=== PATIENT | female | born 1960 | race Caucasian/White ===

== ENCOUNTER 2017-04-03 09:57 | Inpatient (IN) | payer OTHER ==
[2017-04-03 10:23] VITALS: BMI 19.7
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
[2017-04-03] MEDS ORDERED: hydrOXYzine PAMOATE 25 MG CAPSULE (FP) PO PRN (10:59)
[2017-04-03] MEDS ORDERED: chlordiazePOXIDE HCL 25 MG CAPSULE PO PRN (10:59)
[2017-04-03] MEDS ORDERED: ACETAMINOPHEN 325 MG TABLET (FP) PO PRN (10:59)
[2017-04-03] MEDS ORDERED: chlordiazePOXIDE HCL 25 MG CAPSULE PO ONE (10:59)
[2017-04-03] MEDS ORDERED: P-EPHED 60MG/TRIPROLIDI 2.5MG TABLET PO PRN (10:59)
[2017-04-03] MEDS ORDERED: diphenhydrAMINE HCL 50 MG CAPSULE PO PRN (10:59)
[2017-04-03] MEDS ORDERED: guaiFENesin/D-METHORPHAN HB 10 ML UNIT-DOSE CUPS PO PRN (10:59)
[2017-04-03] MEDS ORDERED: MAGNESIUM HYDROX 2400MG/30ML ORAL SUSPENSION 30 ML CUP PO PRN (10:59)
[2017-04-03] MEDS ORDERED: MAGNESIUM CITRATE 300 ML BOTTLE PO PRN (10:59)
[2017-04-03] MEDS ORDERED: IBUPROFEN 400 MG TABLET (FP) PO PRN (10:59)
[2017-04-03] MEDS ORDERED: MENTHOL/PHENOL 1 EACH UD MM PRN (10:59)
[2017-04-03] MEDS ORDERED: LOPERAMIDE HCL 2 MG CAPSULE PO PRN (10:59)
[2017-04-03] MEDS: NICOTINE 21 MG/24 HOURS TOPICAL PATCH TD SCH (11:50)
--- NOTE | 2017-04-03 13:29 | EKG ---
Test Reason : Blood Pressure : / mmHG Vent. Rate : 090 BPM Atrial Rate : 090 BPM P-R Int : 156 ms QRS Dur : 094 ms QT Int : 386 ms P-R-T Axes : 075 077 061 degrees QTc Int : 472 ms NORMAL SINUS RHYTHM NONSPECIFIC T WAVE ABNORMALITY PROLONGED QT ABNORMAL ECG NO PREVIOUS ECGS AVAILABLE Confirmed by ROBLES PATEL MD ([id number]) on 04/03/2017 1:29:05 PM Referred By: Confirmed By:ROBLES PATEL MD
[2017-04-03 15:56] LABS: URINE APPEARANCE SLCLOUDY; URINE BILIRUBIN NEGATIVE (NEGATIVE); URINE BLOOD NEGATIVE (NEGATIVE); URINE COLOR YELLOW; URINE GLUCOSE (UA) NEGATIVE (NEGATIVE); URINE KETONE NEGATIVE (NEGATIVE); URINE NITRITE POSITIVE (NEGATIVE); URINE PROTEIN NEGATIVE (NEGATIVE); URINE UROBILINOGEN NEGATIVE mg/dL (0.2-1.0)
[2017-04-03 15:58] LABS: URINE LEUK ESTERASE 2+ (NEGATIVE)
[2017-04-03 16:03] LABS: URINE BACTERIA RARE /hpf (NONE SEEN); URINE MUCUS RARE; URINE RBC 1 /hpf (0-3); URINE WBC 34 /hpf (3-5); YEAST FEW
[2017-04-03] MEDS: chlordiazePOXIDE HCL 25 MG CAPSULE PO SCH ×2 (16:58→22:20)
[2017-04-03] MEDS ORDERED: BACITRACIN 15 GM TUBE TOPICAL OINTMENT TP SCH (22:00)
[2017-04-03] MEDS: THIAMINE HCL 100 MG TABLET (FP) PO SCH (22:19)
[2017-04-04] MEDS: chlordiazePOXIDE HCL 25 MG CAPSULE PO SCH ×4 (05:49→22:30)
--- NOTE | 2017-04-04 09:09 | CONSULT ---
[facility] Psychiatric Consult - Data Date of interview: 04/04/17 Admission source: [facility] Identifying data: This is b56 years old male with psychiatric hospiotalization history, history of Bipolar dsiorder, intoxicTED WITH: aLCOHOL And Nicotine Substance Abuse History: - Smoking Cessation. Smoking history: Current every day smoker. Have you smoked in the past 12 months: Yes. Aproximately how many cigarettes per day: 5. Cigars Per Day: 0. Hx Chewing Tobacco Use: No. Initiated information on smoking cessation: Yes. 'Breaking Loose' booklet given : 04/03/17. - Substance & Tx. History. Hx Alcohol Use: Yes. Hx Substance Use : No. Substance Use Type: Alcohol. Hx Substance Use Treatment: Yes ([facility] to 03/27/17 not completed). - Substances Abused. Alcohol. Route: Oral. Frequency: Daily. Amount used: 3 pints of vodka. Age of first use: 19. Date of Last Use: 04/02/17 Medical History: S/P Craniotomy, Ecchimosis, Syncope history, Asthma, Seizure history. Weight loss historry Psychiatric History: Patient reports to carry Bipolar disorder, reports most recent psychiatrioc admission on [facility], reports taking prior to admission: Depakote 500mg poqd. Remeron 30mg po qhs. Gabapentin 600mg po tid. Vistaril 100mg po tid Physical/Sexual Abuse/Trauma History: Denies Additional Comment: Depakote 500mg poqd. Remeron 30mg po qhs. Gabapentin 600mg po tid. Vistaril 100mg po tid Mental Status Exam - Mental Status Exam Alert and Oriented to: Person Cognitive Function: Fair Patient Appearance: Unkempt Mood: Sad Affect: Mood Congruent Patient Behavior: Cooperative Speech Pattern: Delayed Voice Loudness: Mildly Soft/Quiet Thought Process: Circumstantial Thought Disorder: Being Controlled Hallucinations: Denies Suicidal Ideation: Denies Homicidal Ideation: Denies Insight/Judgement: Fair Sleep: Difficulty falling asleep Appetite: Weight loss Muscle strength/Tone: Moderate Hypotonicity Gait/Station: Shuffling Additional Comments: Depakote 500mg poqd. Remeron 30mg po qhs. Gabapentin 600mg po tid. Vistaril 100mg po tid Psychiatric Findings - Problem List ([place] 1, 2,3) (1) Alcohol dependence Current Visit: No Status: Active (2) Bipolar disorder Current Visit: No Status: Active (3) Alcohol dependence with uncomplicated withdrawal Current Visit: No Status: Acute (4) Bipolar I disorder Current Visit: No Status: Acute (5) Nicotine dependence Current Visit: No Status: Acute (6) Bipolar disorder, unspecified Current Visit: No Status: Chronic Qualifiers: Active/Remission status: in remission of unspecified degree Qualified Code(s): F31.70 - Bipolar disorder, currently in remission, most recent episode unspecified (7) Weight decreased Current Visit: No Status: Chronic - Initial Treatment Plan Initial Treatment Plan: Depakote 500mg poqd. Remeron 30mg po qhs. Gabapentin 600mg po tid. Vistaril 100mg po tid
--- NOTE | 2017-04-04 09:09 | PN ---
S CIWA - CIWA Score Nausea/Vomitin-No Nausea/No Vomiting Muscle Tremors: 3 Anxiety: 3 Agitation: 4-Moderately Restless Paroxysmal Sweats: 3 Orientation: 0-Oriented Tacttile Disturbances: 0-None Auditory Disturbances: 0-None Visual Disturbances: 0-None Headache: 2-Mild CIWA-Ar Total Score: 15 BHS Progress Note (SOAP) Subjective: back pain sweats shakes interrupted sleep anxious leg pain Objective: 04/04/17 09:06 Vital Signs Temperature 97.0 F 04/04/17 10:00 Pulse Rate 83 04/04/17 10:00 Respiratory Rate 16 04/04/17 10:00 Blood Pressure 112/68 04/04/17 10:00 O2 Sat by Pulse Oximetry (%) Laboratory Tests 04/03/17 13:52 Urine Color Yellow Urine Appearance Slcloudy Urine pH 6.0 D Ur Specific [place] 1.015 Urine Protein Negative Urine Glucose (UA) Negative Urine Ketones Negative Urine Blood Negative Urine Nitrite Positive Urine Bilirubin Negative Urine Urobilinogen Negative Ur Leukocyte Esterase 2+ H Urine RBC 1 Urine WBC 34 Ur Epithelial Cells Few Urine Bacteria Rare Urine Mucus Rare Urine Yeast Few labs pending awake/alert no acute distress repeat u/a Assessment: 04/04/17 09:13 withdrawal sx Plan: continue detox increase fluids lidocaine patch motrin/tylenol prn f/u pending labs
[2017-04-04 10:01] LABS: MCH 30.3 pg (25.7-33.7); MCHC 33.1 g/dl (32.0-36.0); MEAN CELL VOLUME 91.5 fl (80-96); MEAN PLT VOLUME 6.4 fl (7.5-11.1); PLATELET COUNT 182 K/MM3 (134-434); RDW 13.3 % (11.6-15.6)
[2017-04-04 10:21] LABS: ANION GAP 8 (8-16); CO2 27 mmol/L (21-32); GLUCOSE,RANDOM 109 mg/dL (74-106); SGOT/AST 39 U/L (15-37); SGPT/ALT 54 U/L (12-78)
[2017-04-04 10:23] LABS: ALK PHOS 113 U/L (45-117); BILIRUBIN,TOTAL 0.4 mg/dL (0.2-1.0); CALCIUM 8.6 mg/dL (8.5-10.1); CREATININE 0.8 mg/dL (0.55-1.02)
[2017-04-04] MEDS: BACITRACIN 0.9 GM PACKET TP SCH ×2 (10:37→22:30)
[2017-04-04] MEDS: PRENATAL VITAMINS W/ FOLIC ACID TABLET (FP) PO SCH (10:37)
[2017-04-04] MEDS: DIVALPROEX SODIUM 500 MG TABLET E.C. PO SCH (10:37)
[2017-04-04] MEDS: LIDOCAINE 5% TOPICAL PATCH TP SCH (10:38)
[2017-04-04] MEDS: NICOTINE 21 MG/24 HOURS TOPICAL PATCH TD SCH (10:39)
[2017-04-04] MEDS ORDERED: hydrOXYzine PAMOATE 25 MG CAPSULE (FP) PO SCH (14:00)
[2017-04-04] MEDS: hydrOXYzine PAMOATE 50 MG CAPSULE (FP) PO SCH ×2 (14:45→22:31)
[2017-04-04] MEDS: GABAPENTIN 300 MG CAPSULE (FP) PO SCH ×2 (14:45→22:31)
[2017-04-04] MEDS: MAG HYDROX/AL HYDROX/SIMETH 30 ML UNIT-DOSE CUP PO PRN (19:57)
[2017-04-04] MEDS: LIDOCAINE PATCH REMOVAL MC SCH (22:30)
[2017-04-04] MEDS: MIRTAZAPINE 30 MG TABLET (FP) PO SCH (22:31)
[2017-04-04] MEDS: THIAMINE HCL 100 MG TABLET (FP) PO SCH (22:31)
[2017-04-05] MEDS: GABAPENTIN 300 MG CAPSULE (FP) PO SCH ×3 (06:00→22:39)
[2017-04-05] MEDS: hydrOXYzine PAMOATE 50 MG CAPSULE (FP) PO SCH ×3 (06:00→22:39)
[2017-04-05] MEDS: chlordiazePOXIDE HCL 25 MG CAPSULE PO SCH ×2 (06:00→10:30)
[2017-04-05] MEDS: MAG HYDROX/AL HYDROX/SIMETH 30 ML UNIT-DOSE CUP PO PRN (06:28)
[2017-04-05] MEDS: BACITRACIN 0.9 GM PACKET TP SCH ×2 (10:29→22:38)
[2017-04-05] MEDS: DIVALPROEX SODIUM 500 MG TABLET E.C. PO SCH (10:29)
--- NOTE | 2017-04-05 10:29 | PN ---
[facility] CIWA - CIWA Score Nausea/Vomitin-No Nausea/No Vomiting Muscle Tremors: 4-Moderate,w/Arms Extend Anxiety: 3 Agitation: 3 Paroxysmal Sweats: 3 Orientation: 0-Oriented Tacttile Disturbances: 0-None Auditory Disturbances: 0-None Visual Disturbances: 0-None Headache: 0-None Present CIWA-Ar Total Score: 13 S Progress Note (SOAP) Subjective: I have a UTI sweats shakes interrupted sleep anxiety Objective: 04/05/17 10:27 Vital Signs Temperature 96.3 F L 04/05/17 06:30 Pulse Rate 84 04/05/17 06:30 Respiratory Rate 18 04/05/17 06:30 Blood Pressure 129/83 04/05/17 06:30 O2 Sat by Pulse Oximetry (%) Laboratory Tests 04/03/17 04/04/17 04/04/17 13:52 07:15 07:15 WBC 4.0 RBC 3.96 Hgb 12.0 Hct 36.2 MCV 91.5 MCH 30.3 MCHC 33.1 RDW 13.3 Plt Count 182 MPV 6.4 L Sodium 139 Potassium 3.9 Chloride 104 Carbon Dioxide 27 Anion Gap 8 BUN 20 H D Creatinine 0.8 Creat Clearance w eGFR > 60 Random Glucose 109 H Calcium 8.6 Total Bilirubin 0.4 D AST 39 H D ALT 54 D Alkaline Phosphatase 113 D Total Protein 6.0 L Albumin 3.0 L Urine Color Yellow Urine Appearance Slcloudy Urine pH 6.0 D Ur Specific [place] 1.015 Urine Protein Negative Urine Glucose (UA) Negative Urine Ketones Negative Urine Blood Negative Urine Nitrite Positive Urine Bilirubin Negative Urine Urobilinogen Negative Ur Leukocyte Esterase 2+ H Urine RBC 1 Urine WBC 34 Ur Epithelial Cells Few Urine Bacteria Rare Urine Mucus Rare Urine Yeast Few RPR Titer 04/04/17 07:15 WBC RBC Hgb Hct MCV MCH MCHC RDW Plt Count MPV Sodium Potassium Chloride Carbon Dioxide Anion Gap BUN Creatinine Creat Clearance w eGFR Random Glucose Calcium Total Bilirubin AST ALT Alkaline Phosphatase Total Protein Albumin Urine Color Urine Appearance Urine pH Ur Specific [place] Urine Protein Urine Glucose (UA) Urine Ketones Urine Blood Urine Nitrite Urine Bilirubin Urine Urobilinogen Ur Leukocyte Esterase Urine RBC Urine WBC Ur Epithelial Cells Urine Bacteria Urine Mucus Urine Yeast RPR Titer Nonreactive awake/alert ambulating no acute distress Assessment: 04/05/17 10:28 withdrawal sx Plan: continue detox increase fluids bactrim ds bid x 3 days
[2017-04-05] MEDS: LIDOCAINE 5% TOPICAL PATCH TP SCH (10:30)
[2017-04-05] MEDS: NICOTINE 21 MG/24 HOURS TOPICAL PATCH TD SCH (10:30)
[2017-04-05] MEDS: SULFAMETHOXAZOLE/TRIMETHOPRIM 800MG/160MG D.S. TABLET PO SCH ×2 (10:30→22:39)
[2017-04-05] MEDS: PRENATAL VITAMINS W/ FOLIC ACID TABLET (FP) PO SCH (10:31)
[2017-04-05] MEDS: chlordiazePOXIDE 5 MG CAPSULE PO SCH ×2 (19:26→22:39)
[2017-04-05] MEDS: MIRTAZAPINE 30 MG TABLET (FP) PO SCH (22:39)
[2017-04-05] MEDS: THIAMINE HCL 100 MG TABLET (FP) PO SCH (22:39)
[2017-04-05] MEDS: LIDOCAINE PATCH REMOVAL MC SCH (22:53)
[2017-04-06] MEDS: GABAPENTIN 300 MG CAPSULE (FP) PO SCH ×3 (05:53→22:40)
[2017-04-06] MEDS: chlordiazePOXIDE 5 MG CAPSULE PO SCH ×2 (05:53→10:37)
[2017-04-06] MEDS: hydrOXYzine PAMOATE 50 MG CAPSULE (FP) PO SCH ×3 (05:53→22:40)
[2017-04-06] MEDS: BACITRACIN 0.9 GM PACKET TP SCH ×2 (10:37→22:40)
[2017-04-06] MEDS: PRENATAL VITAMINS W/ FOLIC ACID TABLET (FP) PO SCH (10:37)
[2017-04-06] MEDS: SULFAMETHOXAZOLE/TRIMETHOPRIM 800MG/160MG D.S. TABLET PO SCH ×2 (10:37→22:40)
[2017-04-06] MEDS: DIVALPROEX SODIUM 500 MG TABLET E.C. PO SCH (10:37)
[2017-04-06] MEDS: NICOTINE 21 MG/24 HOURS TOPICAL PATCH TD SCH (10:39)
[2017-04-06] MEDS: LIDOCAINE 5% TOPICAL PATCH TP SCH (10:40)
--- NOTE | 2017-04-06 11:21 | PN ---
BHS Progress Note (SOAP) Subjective: feeling better little shakes Objective: 04/06/17 11:19 Vital Signs Temperature 97.9 F L 04/06/17 10:00 Pulse Rate 98 04/06/17 10:00 Respiratory Rate 18 04/06/17 10:00 Blood Pressure 115/69 04/06/17 10:00 O2 Sat by Pulse Oximetry (%) awake/alert ambulating no acute distress Assessment: 04/06/17 11:21 withdrawal sx Plan: continue detox increase fluids continue ABX as ordered d/c in am
[2017-04-06] MEDS: chlordiazePOXIDE HCL 10 MG CAPSULE PO SCH ×2 (17:21→22:40)
[2017-04-06] MEDS: THIAMINE HCL 100 MG TABLET (FP) PO SCH (22:40)
[2017-04-06] MEDS: MIRTAZAPINE 30 MG TABLET (FP) PO SCH (22:40)
[2017-04-06] MEDS: LIDOCAINE PATCH REMOVAL MC SCH (22:41)
[2017-04-07] MEDS: hydrOXYzine PAMOATE 50 MG CAPSULE (FP) PO SCH (05:37)
[2017-04-07] MEDS: chlordiazePOXIDE HCL 10 MG CAPSULE PO SCH ×2 (05:37→10:50)
[2017-04-07] MEDS: GABAPENTIN 300 MG CAPSULE (FP) PO SCH (05:37)
--- NOTE | 2017-04-07 08:10 | PN ---
S Progress Note (SOAP) Subjective: ALERT,NO COMPLAINT Objective: 04/07/17 08:07 Vital Signs Temperature 96.9 F L 04/07/17 06:51 Pulse Rate 84 04/07/17 06:51 Respiratory Rate 18 04/07/17 06:51 Blood Pressure 101/58 04/07/17 06:51 O2 Sat by Pulse Oximetry (%) Assessment: 04/07/17 08:07 DETOX COMPLETED,NO WITHDRAWAL SYMPTOM Plan: DISCHARGE TODAY,FOLLOW UP WITH [facility]
--- NOTE | 2017-04-07 08:15 | DS ---
[facility] Detox Discharge Summary Admission Date: 04/03/17 Discharge Date: 04/07/17 - History Present History: Alcohol Dependence Additional Comments: FOLLOW UP WITH [facility] Pertinent Past History: SEIZURE SYNCOPE ASTHMA NEUROPATHY CRISTI DECREASED S/P SKINN GRAFT ECCHYMOSIS - Physical Exam Results Vital Signs: Vital Signs Temperature 96.9 F L 04/07/17 06:51 Pulse Rate 84 04/07/17 06:51 Respiratory Rate 18 04/07/17 06:51 Blood Pressure 101/58 04/07/17 06:51 O2 Sat by Pulse Oximetry (%) Pertinent Admission Physical Exam Findings: WITHDRAWAL SYMPTOM - Treatment Hospital Course: Detox Protocol Followed, Detoxed Safely, Responded well, Discharged Condition Good, Rehab Referral Accepted Patient has Accepted a Rehab Referral to: [facility] - Medication Discharge Medications: Ambulatory Orders Hydroxyzine Pamoate [Vistaril -] 100 mg PO TID 07/07/13 Fluticasone Propionate [Flovent Hfa] 13 gm IH BID 11/17/15 Albuterol Sulfate Inhaler - [Ventolin HFA Inhaler -] 2 inh PO Q4H PRN #1 canister 11/21/15 Budesonide/Formeterol Fumarate [SYMBICORT 160/4.5mcg -] 1 puff IH BID #1 canister 11/21/15 Gabapentin [Neurontin] 600 mg PO TID #120 capsule 11/21/15 Thiamine HCl [Vitamin B1 -] 100 mg PO HS #30 tablet 11/21/15 Divalproex [Depakote -] 500 mg PO DAILY #30 tablet.ec 12/30/15 Mirtazapine [Remeron -] 30 mg PO HS #30 tablet 12/30/15 Divalproex [Depakote -] 250 mg PO BID #60 tablet.ec 04/04/17 Gabapentin [Neurontin -] 600 mg PO TID #90 cap 04/04/17 Hydroxyzine Pamoate [Vistaril -] 100 mg PO TID #90 cap 04/04/17 Mirtazapine [Remeron -] 30 mg PO HS #30 tablet 04/04/17 - Diagnosis (1) Syncope Current Visit: No Status: Active (2) s/p craniotomy left Current Visit: No Status: Active (3) Alcohol dependence with uncomplicated withdrawal Current Visit: No Status: Acute (4) Bipolar I disorder Current Visit: No Status: Acute (5) Nicotine dependence Current Visit: No Status: Acute (6) Asthma Current Visit: No Status: Chronic (7) Neuropathy Current Visit: No Status: Chronic (8) Seizure Current Visit: No Status: Chronic (9) Weight decreased Current Visit: No Status: Chronic (10) Ecchymosis Current Visit: Yes Status: Acute (11) History of skin graft Current Visit: Yes Status: Acute (12) Bipolar disorder Current Visit: No Status: Active - AMA Did Patient Leave Against Medical Advice: No
[2017-04-07] MEDS ORDERED: chlordiazePOXIDE 5 MG CAPSULE ONE (09:04)
[2017-04-07 10:35] VITALS: BP 107/69; PULSE 91; TEMP 97.9
[2017-04-07] MEDS: LIDOCAINE 5% TOPICAL PATCH TP SCH (10:47)
[2017-04-07] MEDS: BACITRACIN 0.9 GM PACKET TP SCH (10:47)
[2017-04-07] MEDS: DIVALPROEX SODIUM 500 MG TABLET E.C. PO SCH (10:47)
[2017-04-07] MEDS: PRENATAL VITAMINS W/ FOLIC ACID TABLET (FP) PO SCH (10:47)
[2017-04-07] MEDS: SULFAMETHOXAZOLE/TRIMETHOPRIM 800MG/160MG D.S. TABLET PO SCH (10:47)
[2017-04-07] MEDS: NICOTINE 21 MG/24 HOURS TOPICAL PATCH TD SCH (10:49)
== END 2017-04-07 11:40 | disposition other institution (70) | DRG 775 ==
LOC: YASAS 09:57 → Y6N 10:30
PROVIDERS: ADMIT Internal Medicine; ATTEND Internal Medicine
PROC: HZ2ZZZZ Detoxification Services for Substance Abuse Treatment (ICD-10-PCS; principal; 2017-04-07)
DX: F10.230 Alcohol dependence with withdrawal, uncomplicated (principal); F17.210 Nicotine dependence, cigarettes, uncomplicated; F31.89 Other bipolar disorder; J45.909 Unspecified asthma, uncomplicated; G62.9 Polyneuropathy, unspecified; B18.2 Chronic viral hepatitis C; Z86.79 Personal history of other diseases of the circulatory system; Z86.69 Personal history of other diseases of the nervous system and sense organs; Z59.0 Homelessness
CPT/HCPCS: 36415; 80053; 80164; 81003; 81015; 85027; 86593; 93005; 93010

== ENCOUNTER 2017-04-07 11:54 | Inpatient (IN) | payer OTHER ==
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
[2017-04-07] MEDS ORDERED: ACETAMINOPHEN 325 MG TABLET (FP) PO PRN (15:22)
[2017-04-07] MEDS ORDERED: guaiFENesin/D-METHORPHAN HB 10 ML UNIT-DOSE CUPS PO PRN (15:22)
[2017-04-07] MEDS ORDERED: MENTHOL/PHENOL 1 EACH UD MM PRN (15:22)
[2017-04-07] MEDS ORDERED: MAGNESIUM HYDROX 2400MG/30ML ORAL SUSPENSION 30 ML CUP PO PRN (15:22)
[2017-04-07] MEDS ORDERED: IBUPROFEN 400 MG TABLET (FP) PO PRN (15:22)
[2017-04-07] MEDS ORDERED: diphenhydrAMINE HCL 50 MG CAPSULE PO PRN (15:22)
[2017-04-07] MEDS ORDERED: MAGNESIUM CITRATE 300 ML BOTTLE PO PRN (15:22)
[2017-04-07] MEDS ORDERED: P-EPHED 60MG/TRIPROLIDI 2.5MG TABLET PO PRN (15:22)
[2017-04-07] MEDS ORDERED: hydrOXYzine PAMOATE 50 MG CAPSULE (FP) PO PRN (15:22)
[2017-04-07] MEDS ORDERED: LOPERAMIDE HCL 2 MG CAPSULE PO PRN (15:22)
[2017-04-07] MEDS ORDERED: ALBUTEROL SO4 6.7 GM HFA INHALER IH PRN (15:25)
--- NOTE | 2017-04-07 15:35 | HP ---
[facility] Rehab Assess/Revision - Admission History Admitted to Rehab from: [facility] Date of Admission to Rehab: 04/07/17 - Findings Detox History & Physical reviewed: Yes Concur with findings: Yes Comments/Additional Findings: for rehab as protocol
[2017-04-07] MEDS: MIRTAZAPINE 30 MG TABLET (FP) PO SCH (21:21)
[2017-04-07] MEDS: SULFAMETHOXAZOLE/TRIMETHOPRIM 800MG/160MG D.S. TABLET PO SCH (21:21)
[2017-04-07] MEDS: THIAMINE HCL 100 MG TABLET (FP) PO SCH (21:21)
[2017-04-07] MEDS: GABAPENTIN 400 MG CAPSULE (FP) PO SCH (21:21)
[2017-04-07] MEDS: hydrOXYzine PAMOATE 50 MG CAPSULE (FP) PO SCH (21:22)
[2017-04-07] MEDS: BUDESONIDE/FORMETEROL FUMARATE 160/4.5 mcg INHALER IH SCH (21:22)
[2017-04-07] MEDS: LIDOCAINE PATCH REMOVAL MC SCH (21:22)
[2017-04-08] MEDS: hydrOXYzine PAMOATE 50 MG CAPSULE (FP) PO SCH ×3 (06:29→21:24)
[2017-04-08] MEDS: GABAPENTIN 400 MG CAPSULE (FP) PO SCH ×3 (06:29→21:24)
[2017-04-08] MEDS: NICOTINE 21 MG/24 HOURS TOPICAL PATCH TD SCH (10:16)
[2017-04-08] MEDS: LIDOCAINE 5% TOPICAL PATCH TP SCH (10:16)
[2017-04-08] MEDS: DIVALPROEX SODIUM 500 MG TABLET E.C. PO SCH (10:17)
[2017-04-08] MEDS: SULFAMETHOXAZOLE/TRIMETHOPRIM 800MG/160MG D.S. TABLET PO SCH ×2 (10:17→21:24)
[2017-04-08] MEDS: PRENATAL VITAMINS W/ FOLIC ACID TABLET (FP) PO SCH (10:17)
[2017-04-08] MEDS: BUDESONIDE/FORMETEROL FUMARATE 160/4.5 mcg INHALER IH SCH ×2 (10:17→21:23)
--- NOTE | 2017-04-08 14:59 | PN ---
BHS Progress Note (SOAP) Subjective: left foot redness ulcer Objective: 04/08/17 14:57 Vital Signs Temperature 97.8 F 04/08/17 07:09 Pulse Rate 85 04/08/17 07:09 Respiratory Rate 16 04/08/17 07:09 Blood Pressure 103/70 04/08/17 07:09 O2 Sat by Pulse Oximetry (%) pt aox3 ambulating left medial foot ulcer with surrounding redness impression small ulcer with cellulitis plan augmentin 875mg bid bacitracin oint with daily dressing .
[2017-04-08] MEDS: AMOX TR/POT CLAV 875MG/125MG TABLETS (FP) PO SCH (18:15)
[2017-04-08] MEDS ORDERED: PT OWN MED DRAWER 7, Y5N ONE (19:53)
[2017-04-08 20:58] LABS: HIV 1 & 2 AB NEGATIVE; HIV 1 AGp24 NEGATIVE
[2017-04-08] MEDS: THIAMINE HCL 100 MG TABLET (FP) PO SCH (21:24)
[2017-04-08] MEDS: MIRTAZAPINE 30 MG TABLET (FP) PO SCH (21:32)
[2017-04-08] MEDS: LIDOCAINE PATCH REMOVAL MC SCH (22:17)
[2017-04-09] MEDS: GABAPENTIN 400 MG CAPSULE (FP) PO SCH ×3 (06:28→21:21)
[2017-04-09] MEDS: hydrOXYzine PAMOATE 50 MG CAPSULE (FP) PO SCH ×3 (06:28→21:22)
[2017-04-09] MEDS: AMOX TR/POT CLAV 875MG/125MG TABLETS (FP) PO SCH ×2 (07:13→17:21)
[2017-04-09] MEDS: BACITRACIN 0.9 GM PACKET TP SCH (09:50)
[2017-04-09] MEDS: NICOTINE 21 MG/24 HOURS TOPICAL PATCH TD SCH (09:50)
[2017-04-09] MEDS: SULFAMETHOXAZOLE/TRIMETHOPRIM 800MG/160MG D.S. TABLET PO SCH ×2 (09:51→21:22)
[2017-04-09] MEDS: PRENATAL VITAMINS W/ FOLIC ACID TABLET (FP) PO SCH (09:51)
[2017-04-09] MEDS: DIVALPROEX SODIUM 500 MG TABLET E.C. PO SCH (09:51)
[2017-04-09] MEDS: LIDOCAINE 5% TOPICAL PATCH TP SCH (09:51)
[2017-04-09] MEDS ORDERED: PT OWN MED DRAWER 7, Y5N ONE ×2 (09:52→20:35)
[2017-04-09] MEDS: BUDESONIDE/FORMETEROL FUMARATE 160/4.5 mcg INHALER IH SCH ×2 (09:53→21:21)
[2017-04-09] MEDS: MIRTAZAPINE 30 MG TABLET (FP) PO SCH (21:22)
[2017-04-09] MEDS: THIAMINE HCL 100 MG TABLET (FP) PO SCH (21:22)
[2017-04-09] MEDS: LIDOCAINE PATCH REMOVAL MC SCH (22:00)
[2017-04-10] MEDS: GABAPENTIN 400 MG CAPSULE (FP) PO SCH ×3 (06:37→21:47)
[2017-04-10] MEDS: hydrOXYzine PAMOATE 50 MG CAPSULE (FP) PO SCH ×3 (06:37→21:47)
[2017-04-10] MEDS: AMOX TR/POT CLAV 875MG/125MG TABLETS (FP) PO SCH ×2 (07:43→17:25)
[2017-04-10] MEDS ORDERED: PT OWN MED DRAWER 7, Y5N ONE (08:55)
[2017-04-10] MEDS: BUDESONIDE/FORMETEROL FUMARATE 160/4.5 mcg INHALER IH SCH ×2 (09:55→21:47)
[2017-04-10] MEDS: BACITRACIN 0.9 GM PACKET TP SCH (09:55)
[2017-04-10] MEDS: LIDOCAINE 5% TOPICAL PATCH TP SCH (09:56)
[2017-04-10] MEDS: NICOTINE 21 MG/24 HOURS TOPICAL PATCH TD SCH (09:56)
[2017-04-10] MEDS: DIVALPROEX SODIUM 500 MG TABLET E.C. PO SCH (09:57)
[2017-04-10] MEDS: SULFAMETHOXAZOLE/TRIMETHOPRIM 800MG/160MG D.S. TABLET PO SCH ×2 (09:57→21:47)
[2017-04-10] MEDS: PRENATAL VITAMINS W/ FOLIC ACID TABLET (FP) PO SCH (09:57)
[2017-04-10] MEDS: MAG HYDROX/AL HYDROX/SIMETH 30 ML UNIT-DOSE CUP PO PRN (21:46)
[2017-04-10] MEDS: MIRTAZAPINE 30 MG TABLET (FP) PO SCH (21:48)
[2017-04-10] MEDS: THIAMINE HCL 100 MG TABLET (FP) PO SCH (21:48)
[2017-04-10] MEDS: LIDOCAINE PATCH REMOVAL MC SCH (21:49)
[2017-04-11] MEDS: hydrOXYzine PAMOATE 50 MG CAPSULE (FP) PO SCH ×3 (06:25→21:33)
[2017-04-11] MEDS: GABAPENTIN 400 MG CAPSULE (FP) PO SCH ×3 (06:25→21:33)
[2017-04-11] MEDS: AMOX TR/POT CLAV 875MG/125MG TABLETS (FP) PO SCH ×2 (07:48→17:30)
[2017-04-11] MEDS: MAG HYDROX/AL HYDROX/SIMETH 30 ML UNIT-DOSE CUP PO PRN ×2 (08:50→21:32)
[2017-04-11] MEDS ORDERED: PT OWN MED DRAWER 7, Y5N ONE (10:19)
[2017-04-11] MEDS: PRENATAL VITAMINS W/ FOLIC ACID TABLET (FP) PO SCH (10:20)
[2017-04-11] MEDS: BACITRACIN 0.9 GM PACKET TP SCH (10:20)
[2017-04-11] MEDS: SULFAMETHOXAZOLE/TRIMETHOPRIM 800MG/160MG D.S. TABLET PO SCH ×2 (10:20→21:33)
[2017-04-11] MEDS: BUDESONIDE/FORMETEROL FUMARATE 160/4.5 mcg INHALER IH SCH ×2 (10:20→21:33)
[2017-04-11] MEDS: DIVALPROEX SODIUM 500 MG TABLET E.C. PO SCH (10:20)
[2017-04-11] MEDS: NICOTINE 21 MG/24 HOURS TOPICAL PATCH TD SCH (10:21)
[2017-04-11] MEDS: LIDOCAINE 5% TOPICAL PATCH TP SCH (10:21)
--- NOTE | 2017-04-11 13:53 | PN ---
Psychiatric Progress Note Vital Signs: Vital Signs Period Temp Pulse Resp BP Sys/Richardson Pulse Ox Last 24 Hr 97.5 F 90 18-18 111/71 Date of Session: 04/11/17 Chief Complaint:: leg cramps from rEMERON HPI: Patient addressing Alcohol Dependence comorbid with Nicotine Dependence and Bipolar Disorder ROS: Asthma, Hep C, Neuropathy, Alcohol-related seizure Current Medications: Active Medications Generic Name Dose Route Start Last Admin Trade Name Freq PRN Reason Stop Dose Admin Acetaminophen 650 mg 04/07/17 15:22 Tylenol - PO Q4H PRN FEVER OR PAIN Al Hydroxide/Mg Hydroxide 30 ml 04/07/17 15:22 04/11/17 08:50 Mylanta Oral Suspension - PO 30 ml Q6H PRN Administration DYSPEPSIA Albuterol Sulfate 2 puff 04/07/17 15:25 Ventolin Hfa Inhaler - IH Q4H PRN ASTHMA Amoxicillin/Clavulanate Potassium 1 tab 04/08/17 17:30 04/11/17 07:48 Augmentin - 875mg Tablet PO 1 tab BID@0800,1730 DEVYN Administration Bacitracin 0.9 gm 04/09/17 10:00 04/11/17 10:20 Bacitracin - TP 0.9 gm DAILY DEVYN Administration Budesonide/Formoterol Fumarate 1 puff 04/07/17 22:00 04/11/17 10:20 Symbicort 160/4.5mcg - IH 1 inhaler BID DEVYN Administration Diphenhydramine HCl 50 mg 04/07/17 15:22 Benadryl - PO HSMR1 PRN FOR ITCHING Divalproex Sodium 500 mg 04/08/17 10:00 04/11/17 10:20 Depakote - PO 500 mg DAILY DEVYN Administration Eucalyptus/Menthol/Phenol/Sorbitol 1 each 04/07/17 15:22 Cepastat Lozenge - MM Q4H PRN SORE THROAT Gabapentin 400 mg 04/07/17 22:00 04/11/17 13:36 Neurontin - PO 400 mg TID DEVYN Administration Guaifenesin 10 ml 04/07/17 15:22 Robitussin Dm - PO Q6H PRN COUGH Hydroxyzine Pamoate 100 mg 04/07/17 22:00 04/11/17 13:37 Vistaril - PO 100 mg TID DEVYN Administration Hydroxyzine Pamoate 50 mg 04/07/17 15:22 Vistaril - PO Q4H PRN AGITATION Ibuprofen 400 mg 04/07/17 15:22 Motrin - PO Q6H PRN PAIN Lidocaine 1 patch 04/08/17 10:00 04/11/17 10:21 Lidoderm Patch - TP 1 patch DAILY DEVYN Administration Loperamide HCl 4 mg 04/07/17 15:22 Imodium - PO Q6H PRN DIARRHEA Magnesium Hydroxide 30 ml 04/07/17 15:22 Milk Of Magnesia - PO DAILY PRN CONSTIPATION Miscellaneous 1 each 04/07/17 22:00 04/10/17 21:49 Lidoderm Patch Removal MC 1 each DAILY@2200 DEVYN Administration Nicotine 21 mg 04/08/17 10:00 04/11/17 10:21 Nicoderm Patch - TD 21 mg DAILY DEVYN Administration Multivit/Folic Acid/Iron 1 tab 04/08/17 10:00 04/11/17 10:20 Vitamins (Sjr) - PO 1 tab DAILY DEVYN Administration Pseudoephedrine/Triprolidine 1 combo 04/07/17 15:22 Actifed - PO TID PRN NASAL CONGESTION Quetiapine Fumarate 100 mg 04/11/17 22:00 Seroquel - PO HS DEVYN Thiamine HCl 100 mg 04/07/17 22:00 04/10/17 21:48 Vitamin B1 - PO 100 mg HS DEVYN Administration Trimethoprim/Sulfamethoxazole 1 each 04/07/17 22:00 04/11/17 10:20 Bactrim Ds - PO 1 each BID DEVYN Administration Current Side Effect: Yes (Cramps in legs) Lab tests ordered: Yes Provider note:: Patient reports experiencing cramps in her legs due to Remeron. Claims that she had that problem before and her psychiatrist substituted Seroquel 100 mg to Remeron for insomnia. This was verified by calling her Pharmacy:[facility] at . She filled Seroquel script on 03/21. Total face to face time:: 25 Mental Status Exam - Mental Status Exam Alert and Oriented to: Time, Place, Person Cognitive Function: Fair Patient Appearance: Well Groomed Mood: Irritable Affect: Appropriate Patient Behavior: Cooperative Speech Pattern: Clear Voice Loudness: Normal Thought Process: Intact, Goal Oriented Thought Disorder: Not Present Hallucinations: Denies Suicidal Ideation: Denies Homicidal Ideation: Denies Insight/Judgement: Fair Sleep: Poorly Appetite: Good Muscle strength/Tone: Normal Gait/Station: Normal Psychiatric Treatment Plan - Problem List (1) Alcohol dependence Current Visit: No (2) Nicotine dependence Current Visit: No (3) Bipolar disorder Current Visit: No (4) Asthma Current Visit: No (5) Neuropathy Current Visit: No (6) s/p craniotomy left Current Visit: No (7) s/p multiple surgery left Current Visit: No Initial treatment plan: 1) Discontinue Remeron 30 mg po HS. 2) Start Seroquel 100 mg po HS. 3) Monitor progress
[2017-04-11] MEDS: THIAMINE HCL 100 MG TABLET (FP) PO SCH (21:32)
[2017-04-11] MEDS: LIDOCAINE PATCH REMOVAL MC SCH (21:34)
[2017-04-11] MEDS: QUEtiapine FUMARATE 100 MG TABLET (FP) PO SCH (21:35)
[2017-04-12] MEDS: hydrOXYzine PAMOATE 50 MG CAPSULE (FP) PO SCH ×3 (05:58→21:25)
[2017-04-12] MEDS: GABAPENTIN 400 MG CAPSULE (FP) PO SCH ×3 (05:58→21:25)
[2017-04-12] MEDS: AMOX TR/POT CLAV 875MG/125MG TABLETS (FP) PO SCH ×2 (08:02→17:48)
[2017-04-12] MEDS: MAG HYDROX/AL HYDROX/SIMETH 30 ML UNIT-DOSE CUP PO PRN ×2 (08:03→21:29)
[2017-04-12] MEDS: PRENATAL VITAMINS W/ FOLIC ACID TABLET (FP) PO SCH (10:25)
[2017-04-12] MEDS: SULFAMETHOXAZOLE/TRIMETHOPRIM 800MG/160MG D.S. TABLET PO SCH ×2 (10:25→21:25)
[2017-04-12] MEDS: LIDOCAINE 5% TOPICAL PATCH TP SCH (10:25)
[2017-04-12] MEDS: BACITRACIN 0.9 GM PACKET TP SCH (10:25)
[2017-04-12] MEDS: DIVALPROEX SODIUM 500 MG TABLET E.C. PO SCH (10:25)
[2017-04-12] MEDS: BUDESONIDE/FORMETEROL FUMARATE 160/4.5 mcg INHALER IH SCH ×2 (10:26→21:25)
[2017-04-12] MEDS: NICOTINE 21 MG/24 HOURS TOPICAL PATCH TD SCH (10:26)
[2017-04-12] MEDS ORDERED: PT OWN MED DRAWER 7, Y5N ONE (12:55)
[2017-04-12] MEDS: QUEtiapine FUMARATE 100 MG TABLET (FP) PO SCH (21:25)
[2017-04-12] MEDS: LIDOCAINE PATCH REMOVAL MC SCH (21:25)
[2017-04-12] MEDS: THIAMINE HCL 100 MG TABLET (FP) PO SCH (21:25)
[2017-04-13] MEDS: GABAPENTIN 400 MG CAPSULE (FP) PO SCH ×3 (06:14→21:30)
[2017-04-13] MEDS: hydrOXYzine PAMOATE 50 MG CAPSULE (FP) PO SCH ×3 (06:14→21:31)
[2017-04-13] MEDS: AMOX TR/POT CLAV 875MG/125MG TABLETS (FP) PO SCH ×2 (07:33→18:40)
[2017-04-13] MEDS ORDERED: PT OWN MED DRAWER 7, Y5N ONE (09:07)
[2017-04-13] MEDS: PRENATAL VITAMINS W/ FOLIC ACID TABLET (FP) PO SCH (10:04)
[2017-04-13] MEDS: BACITRACIN 0.9 GM PACKET TP SCH (10:04)
[2017-04-13] MEDS: BUDESONIDE/FORMETEROL FUMARATE 160/4.5 mcg INHALER IH SCH ×2 (10:04→21:32)
[2017-04-13] MEDS: SULFAMETHOXAZOLE/TRIMETHOPRIM 800MG/160MG D.S. TABLET PO SCH ×2 (10:04→21:31)
[2017-04-13] MEDS: DIVALPROEX SODIUM 500 MG TABLET E.C. PO SCH (10:04)
[2017-04-13] MEDS: LIDOCAINE 5% TOPICAL PATCH TP SCH (10:05)
[2017-04-13] MEDS: NICOTINE 21 MG/24 HOURS TOPICAL PATCH TD SCH (10:05)
[2017-04-13] MEDS: THIAMINE HCL 100 MG TABLET (FP) PO SCH (21:30)
[2017-04-13] MEDS: QUEtiapine FUMARATE 100 MG TABLET (FP) PO SCH (21:31)
[2017-04-13] MEDS: LIDOCAINE PATCH REMOVAL MC SCH (21:33)
[2017-04-14] MEDS: GABAPENTIN 400 MG CAPSULE (FP) PO SCH ×3 (06:26→21:26)
[2017-04-14] MEDS: hydrOXYzine PAMOATE 50 MG CAPSULE (FP) PO SCH ×3 (06:26→21:26)
[2017-04-14] MEDS: AMOX TR/POT CLAV 875MG/125MG TABLETS (FP) PO SCH ×2 (07:32→17:25)
[2017-04-14] MEDS ORDERED: PT OWN MED DRAWER 7, Y5N ONE (08:43)
[2017-04-14] MEDS: PRENATAL VITAMINS W/ FOLIC ACID TABLET (FP) PO SCH (09:47)
[2017-04-14] MEDS: DIVALPROEX SODIUM 500 MG TABLET E.C. PO SCH (09:47)
[2017-04-14] MEDS: LIDOCAINE 5% TOPICAL PATCH TP SCH (09:47)
[2017-04-14] MEDS: SULFAMETHOXAZOLE/TRIMETHOPRIM 800MG/160MG D.S. TABLET PO SCH ×2 (09:47→21:26)
[2017-04-14] MEDS: BUDESONIDE/FORMETEROL FUMARATE 160/4.5 mcg INHALER IH SCH ×2 (09:48→21:27)
[2017-04-14] MEDS: NICOTINE 21 MG/24 HOURS TOPICAL PATCH TD SCH (09:48)
[2017-04-14] MEDS: BACITRACIN 0.9 GM PACKET TP SCH (09:48)
[2017-04-14] MEDS: THIAMINE HCL 100 MG TABLET (FP) PO SCH (21:26)
[2017-04-14] MEDS: QUEtiapine FUMARATE 100 MG TABLET (FP) PO SCH (21:26)
[2017-04-14] MEDS: LIDOCAINE PATCH REMOVAL MC SCH (21:27)
[2017-04-15] MEDS: hydrOXYzine PAMOATE 50 MG CAPSULE (FP) PO SCH ×3 (06:01→21:24)
[2017-04-15] MEDS: GABAPENTIN 400 MG CAPSULE (FP) PO SCH ×3 (06:01→21:24)
[2017-04-15] MEDS: AMOX TR/POT CLAV 875MG/125MG TABLETS (FP) PO SCH ×2 (07:05→17:25)
[2017-04-15] MEDS ORDERED: PT OWN MED DRAWER 7, Y5N ONE (07:59)
[2017-04-15] MEDS: NICOTINE 21 MG/24 HOURS TOPICAL PATCH TD SCH (10:14)
[2017-04-15] MEDS: SULFAMETHOXAZOLE/TRIMETHOPRIM 800MG/160MG D.S. TABLET PO SCH ×2 (10:15→21:24)
[2017-04-15] MEDS: DIVALPROEX SODIUM 500 MG TABLET E.C. PO SCH (10:15)
[2017-04-15] MEDS: BACITRACIN 0.9 GM PACKET TP SCH (10:15)
[2017-04-15] MEDS: PRENATAL VITAMINS W/ FOLIC ACID TABLET (FP) PO SCH (10:15)
[2017-04-15] MEDS: LIDOCAINE 5% TOPICAL PATCH TP SCH (10:15)
[2017-04-15] MEDS: BUDESONIDE/FORMETEROL FUMARATE 160/4.5 mcg INHALER IH SCH ×2 (10:15→21:25)
[2017-04-15] MEDS: QUEtiapine FUMARATE 100 MG TABLET (FP) PO SCH (21:24)
[2017-04-15] MEDS: THIAMINE HCL 100 MG TABLET (FP) PO SCH (21:25)
[2017-04-15] MEDS: LIDOCAINE PATCH REMOVAL MC SCH (21:25)
[2017-04-16] MEDS: hydrOXYzine PAMOATE 50 MG CAPSULE (FP) PO SCH ×3 (06:33→21:11)
[2017-04-16] MEDS: GABAPENTIN 400 MG CAPSULE (FP) PO SCH ×3 (06:33→21:11)
[2017-04-16] MEDS ORDERED: PT OWN MED DRAWER 7, Y5N ONE ×2 (08:24→12:52)
[2017-04-16] MEDS: BACITRACIN 0.9 GM PACKET TP SCH (10:06)
[2017-04-16] MEDS: DIVALPROEX SODIUM 500 MG TABLET E.C. PO SCH (10:06)
[2017-04-16] MEDS: PRENATAL VITAMINS W/ FOLIC ACID TABLET (FP) PO SCH (10:06)
[2017-04-16] MEDS: LIDOCAINE 5% TOPICAL PATCH TP SCH (10:06)
[2017-04-16] MEDS: SULFAMETHOXAZOLE/TRIMETHOPRIM 800MG/160MG D.S. TABLET PO SCH ×2 (10:07→21:11)
[2017-04-16] MEDS: NICOTINE 21 MG/24 HOURS TOPICAL PATCH TD SCH (10:07)
[2017-04-16] MEDS: BUDESONIDE/FORMETEROL FUMARATE 160/4.5 mcg INHALER IH SCH ×2 (10:07→21:10)
[2017-04-16] MEDS: QUEtiapine FUMARATE 100 MG TABLET (FP) PO SCH (21:11)
[2017-04-16] MEDS: THIAMINE HCL 100 MG TABLET (FP) PO SCH (21:11)
[2017-04-16] MEDS: LIDOCAINE PATCH REMOVAL MC SCH (21:24)
[2017-04-17] MEDS: GABAPENTIN 400 MG CAPSULE (FP) PO SCH ×3 (06:18→21:15)
[2017-04-17] MEDS: hydrOXYzine PAMOATE 50 MG CAPSULE (FP) PO SCH ×3 (06:18→21:15)
[2017-04-17] MEDS: NICOTINE 21 MG/24 HOURS TOPICAL PATCH TD SCH (09:48)
[2017-04-17] MEDS: LIDOCAINE 5% TOPICAL PATCH TP SCH (09:49)
[2017-04-17] MEDS: DIVALPROEX SODIUM 500 MG TABLET E.C. PO SCH (09:50)
[2017-04-17] MEDS: BUDESONIDE/FORMETEROL FUMARATE 160/4.5 mcg INHALER IH SCH ×2 (09:50→21:16)
[2017-04-17] MEDS: BACITRACIN 0.9 GM PACKET TP SCH (09:50)
[2017-04-17] MEDS: SULFAMETHOXAZOLE/TRIMETHOPRIM 800MG/160MG D.S. TABLET PO SCH ×2 (09:50→21:15)
[2017-04-17] MEDS: PRENATAL VITAMINS W/ FOLIC ACID TABLET (FP) PO SCH (09:50)
[2017-04-17] MEDS: MAG HYDROX/AL HYDROX/SIMETH 30 ML UNIT-DOSE CUP PO PRN (16:28)
[2017-04-17] MEDS ORDERED: PT OWN MED DRAWER 7, Y5N ONE (19:13)
[2017-04-17] MEDS: THIAMINE HCL 100 MG TABLET (FP) PO SCH (21:15)
[2017-04-17] MEDS: QUEtiapine FUMARATE 100 MG TABLET (FP) PO SCH (21:15)
[2017-04-17] MEDS: LIDOCAINE PATCH REMOVAL MC SCH (21:16)
[2017-04-18] MEDS: hydrOXYzine PAMOATE 50 MG CAPSULE (FP) PO SCH ×3 (06:12→21:24)
[2017-04-18] MEDS: GABAPENTIN 400 MG CAPSULE (FP) PO SCH ×3 (06:12→21:24)
[2017-04-18] MEDS: NICOTINE 21 MG/24 HOURS TOPICAL PATCH TD SCH (10:08)
[2017-04-18] MEDS: SULFAMETHOXAZOLE/TRIMETHOPRIM 800MG/160MG D.S. TABLET PO SCH (10:10)
[2017-04-18] MEDS: BACITRACIN 0.9 GM PACKET TP SCH (10:10)
[2017-04-18] MEDS: DIVALPROEX SODIUM 500 MG TABLET E.C. PO SCH (10:10)
[2017-04-18] MEDS: PRENATAL VITAMINS W/ FOLIC ACID TABLET (FP) PO SCH (10:10)
[2017-04-18] MEDS: LIDOCAINE 5% TOPICAL PATCH TP SCH (10:11)
[2017-04-18] MEDS ORDERED: PT OWN MED DRAWER 7, Y5N ONE (10:12)
[2017-04-18] MEDS: BUDESONIDE/FORMETEROL FUMARATE 160/4.5 mcg INHALER IH SCH ×2 (10:12→21:25)
[2017-04-18] MEDS: THIAMINE HCL 100 MG TABLET (FP) PO SCH (21:24)
[2017-04-18] MEDS: QUEtiapine FUMARATE 100 MG TABLET (FP) PO SCH (21:24)
[2017-04-18] MEDS: LIDOCAINE PATCH REMOVAL MC SCH (21:25)
[2017-04-19] MEDS: GABAPENTIN 400 MG CAPSULE (FP) PO SCH ×3 (06:23→21:11)
[2017-04-19] MEDS: hydrOXYzine PAMOATE 50 MG CAPSULE (FP) PO SCH ×3 (06:23→21:11)
[2017-04-19] MEDS: BUDESONIDE/FORMETEROL FUMARATE 160/4.5 mcg INHALER IH SCH ×2 (09:59→21:13)
[2017-04-19] MEDS: PRENATAL VITAMINS W/ FOLIC ACID TABLET (FP) PO SCH (09:59)
[2017-04-19] MEDS: DIVALPROEX SODIUM 500 MG TABLET E.C. PO SCH (09:59)
[2017-04-19] MEDS ORDERED: PT OWN MED DRAWER 7, Y5N ONE (09:59)
[2017-04-19] MEDS: BACITRACIN 0.9 GM PACKET TP SCH (09:59)
[2017-04-19] MEDS: LIDOCAINE 5% TOPICAL PATCH TP SCH (10:00)
[2017-04-19] MEDS: NICOTINE 21 MG/24 HOURS TOPICAL PATCH TD SCH (10:00)
[2017-04-19] MEDS: MAG HYDROX/AL HYDROX/SIMETH 30 ML UNIT-DOSE CUP PO PRN (10:12)
[2017-04-19] MEDS: THIAMINE HCL 100 MG TABLET (FP) PO SCH (21:11)
[2017-04-19] MEDS: QUEtiapine FUMARATE 100 MG TABLET (FP) PO SCH (21:11)
[2017-04-19] MEDS: LIDOCAINE PATCH REMOVAL MC SCH (21:14)
[2017-04-20] MEDS: hydrOXYzine PAMOATE 50 MG CAPSULE (FP) PO SCH ×3 (06:33→21:27)
[2017-04-20] MEDS: GABAPENTIN 400 MG CAPSULE (FP) PO SCH ×3 (06:33→21:29)
[2017-04-20] MEDS: BACITRACIN 0.9 GM PACKET TP SCH (09:40)
[2017-04-20] MEDS: NICOTINE 21 MG/24 HOURS TOPICAL PATCH TD SCH (09:40)
[2017-04-20] MEDS: LIDOCAINE 5% TOPICAL PATCH TP SCH (09:40)
[2017-04-20] MEDS: BUDESONIDE/FORMETEROL FUMARATE 160/4.5 mcg INHALER IH SCH ×2 (09:40→21:28)
[2017-04-20] MEDS: PRENATAL VITAMINS W/ FOLIC ACID TABLET (FP) PO SCH (09:41)
[2017-04-20] MEDS: DIVALPROEX SODIUM 500 MG TABLET E.C. PO SCH (09:41)
[2017-04-20] MEDS ORDERED: PT OWN MED DRAWER 7, Y5N ONE ×2 (12:00→12:01)
[2017-04-20] MEDS: THIAMINE HCL 100 MG TABLET (FP) PO SCH (21:27)
[2017-04-20] MEDS: QUEtiapine FUMARATE 100 MG TABLET (FP) PO SCH (21:27)
[2017-04-20] MEDS: LIDOCAINE PATCH REMOVAL MC SCH (21:29)
[2017-04-21] MEDS: GABAPENTIN 400 MG CAPSULE (FP) PO SCH ×3 (06:23→21:17)
[2017-04-21] MEDS: hydrOXYzine PAMOATE 50 MG CAPSULE (FP) PO SCH ×3 (06:24→21:17)
[2017-04-21 06:52] VITALS: TEMP 97
[2017-04-21] MEDS: NICOTINE 21 MG/24 HOURS TOPICAL PATCH TD SCH (09:58)
[2017-04-21] MEDS: LIDOCAINE 5% TOPICAL PATCH TP SCH (09:58)
[2017-04-21] MEDS: DIVALPROEX SODIUM 500 MG TABLET E.C. PO SCH (09:58)
[2017-04-21] MEDS: BACITRACIN 0.9 GM PACKET TP SCH (09:58)
[2017-04-21] MEDS: PRENATAL VITAMINS W/ FOLIC ACID TABLET (FP) PO SCH (09:59)
[2017-04-21] MEDS: BUDESONIDE/FORMETEROL FUMARATE 160/4.5 mcg INHALER IH SCH ×2 (09:59→21:16)
[2017-04-21] MEDS: QUEtiapine FUMARATE 100 MG TABLET (FP) PO SCH (21:17)
[2017-04-21] MEDS: THIAMINE HCL 100 MG TABLET (FP) PO SCH (21:17)
[2017-04-21] MEDS: LIDOCAINE PATCH REMOVAL MC SCH (21:18)
[2017-04-22] MEDS: GABAPENTIN 400 MG CAPSULE (FP) PO SCH (06:20)
[2017-04-22] MEDS: hydrOXYzine PAMOATE 50 MG CAPSULE (FP) PO SCH (06:20)
[2017-04-22 07:05] VITALS: BP 125/70; PULSE 102
[2017-04-22] MEDS: DIVALPROEX SODIUM 500 MG TABLET E.C. PO SCH (09:29)
[2017-04-22] MEDS: PRENATAL VITAMINS W/ FOLIC ACID TABLET (FP) PO SCH (09:29)
[2017-04-22] MEDS: BUDESONIDE/FORMETEROL FUMARATE 160/4.5 mcg INHALER IH SCH (09:29)
[2017-04-22] MEDS: BACITRACIN 0.9 GM PACKET TP SCH (09:29)
[2017-04-22] MEDS: NICOTINE 21 MG/24 HOURS TOPICAL PATCH TD SCH (09:30)
[2017-04-22] MEDS: LIDOCAINE 5% TOPICAL PATCH TP SCH (09:30)
--- NOTE | 2017-04-22 09:38 | PN ---
Psychiatric Progress Note Vital Signs: Vital Signs Period Temp Pulse Resp BP Sys/Richardson Pulse Ox Last 24 Hr 97.0 F 102 16-16 125/70 Date of Session: 04/22/17 Chief Complaint:: Discharge visit HPI: Patient addressed Alcohol dependence comorbid with Bipolar I disorder. ROS: Significant for history of craniotomy. Current Medications: Active Medications Generic Name Dose Route Start Last Admin Trade Name Freq PRN Reason Stop Dose Admin Acetaminophen 650 mg 04/07/17 15:22 Tylenol - PO Q4H PRN FEVER OR PAIN Al Hydroxide/Mg Hydroxide 30 ml 04/07/17 15:22 04/19/17 10:12 Mylanta Oral Suspension - PO 30 ml Q6H PRN Administration DYSPEPSIA Albuterol Sulfate 2 puff 04/07/17 15:25 Ventolin Hfa Inhaler - IH Q4H PRN ASTHMA Bacitracin 0.9 gm 04/09/17 10:00 04/22/17 09:29 Bacitracin - TP 0.9 gm DAILY DEVYN Administration Budesonide/Formoterol Fumarate 1 puff 04/07/17 22:00 04/22/17 09:29 Symbicort 160/4.5mcg - IH 1 inhaler BID DEVYN Administration Diphenhydramine HCl 50 mg 04/07/17 15:22 04/12/17 21:25 Benadryl - PO 50 mg HSMR1 PRN Administration FOR ITCHING Divalproex Sodium 500 mg 04/08/17 10:00 04/22/17 09:29 Depakote - PO 500 mg DAILY DEVYN Administration Eucalyptus/Menthol/Phenol/Sorbitol 1 each 04/07/17 15:22 Cepastat Lozenge - MM Q4H PRN SORE THROAT Gabapentin 400 mg 04/07/17 22:00 04/22/17 06:20 Neurontin - PO 400 mg TID DEVYN Administration Guaifenesin 10 ml 04/07/17 15:22 Robitussin Dm - PO Q6H PRN COUGH Hydroxyzine Pamoate 100 mg 04/07/17 22:00 04/22/17 06:20 Vistaril - PO 100 mg TID DEVYN Administration Hydroxyzine Pamoate 50 mg 04/07/17 15:22 Vistaril - PO Q4H PRN AGITATION Ibuprofen 400 mg 04/07/17 15:22 04/19/17 21:13 Motrin - PO 400 mg Q6H PRN Administration PAIN Lidocaine 1 patch 04/08/17 10:00 04/22/17 09:30 Lidoderm Patch - TP 1 patch DAILY DEVYN Administration Loperamide HCl 4 mg 04/07/17 15:22 Imodium - PO Q6H PRN DIARRHEA Magnesium Hydroxide 30 ml 04/07/17 15:22 Milk Of Magnesia - PO DAILY PRN CONSTIPATION Miscellaneous 1 each 04/07/17 22:00 04/21/17 21:18 Lidoderm Patch Removal MC 1 each DAILY@2200 DEVYN Administration Nicotine 21 mg 04/08/17 10:00 04/22/17 09:30 Nicoderm Patch - TD Not Given DAILY DEVYN Multivit/Folic Acid/Iron 1 tab 04/08/17 10:00 04/22/17 09:29 Vitamins (Sjr) - PO 1 tab DAILY DEVYN Administration Pseudoephedrine/Triprolidine 1 combo 04/07/17 15:22 Actifed - PO TID PRN NASAL CONGESTION Quetiapine Fumarate 100 mg 04/11/17 22:00 04/21/17 21:17 Seroquel - PO 100 mg HS DEVYN Administration Thiamine HCl 100 mg 04/07/17 22:00 04/21/17 21:17 Vitamin B1 - PO 100 mg HS DEVYN Administration Current Side Effect: No Lab tests ordered: No Lab tests reviewed: Yes Provider note:: Patient completed this program today.She has met her treatment goals and will continue to address her issues on outpatient basis [facility].Patient will continue current medications:Neurontin 400 mg po tid,Seroquel 100 mg po hs,Depakote 500 mg po hs and Vistaril 100 mg po bid.. Scripts provided.Supportive therapy provided including coping skills , support system utilization to maintain recovery. Patient is stable for discharge today. Total face to face time:: 30 Mental Status Exam - Mental Status Exam Alert and Oriented to: Time, Place, Person Cognitive Function: Grossly Intact Patient Appearance: Well Groomed Mood: Hopeful, Euthymic Affect: Labile Patient Behavior: Cooperative Speech Pattern: Clear Voice Loudness: Normal Thought Process: Goal Oriented Thought Disorder: Not Present Hallucinations: Denies Suicidal Ideation: Denies Homicidal Ideation: Denies Insight/Judgement: Fair Sleep: Fair Appetite: Fair Muscle strength/Tone: Normal Gait/Station: Normal
== END 2017-04-22 09:45 | disposition home or self-care (01) | DRG 772 ==
LOC: YASAS 11:54 → Y3E 11:55
PROVIDERS: ADMIT Psychiatry & Neurology Psychiatry; ATTEND Psychiatry & Neurology Psychiatry
PROC: HZ42ZZZ Group Counseling for Substance Abuse Treatment, Cognitive-Behavioral (ICD-10-PCS; principal; 2017-04-07)
DX: F10.20 Alcohol dependence, uncomplicated (principal); F17.210 Nicotine dependence, cigarettes, uncomplicated; F31.89 Other bipolar disorder; J45.909 Unspecified asthma, uncomplicated; G62.9 Polyneuropathy, unspecified; L89.892 Pressure ulcer of other site, stage 2; L03.115 Cellulitis of right lower limb; Z98.890 Other specified postprocedural states; Z86.79 Personal history of other diseases of the circulatory system; Z86.69 Personal history of other diseases of the nervous system and sense organs; Z59.0 Homelessness
CPT/HCPCS: 36415; 87389